=== PATIENT | male | born 1945 | race Caucasian/White ===

== ENCOUNTER 2017-09-14 11:10 | Day surgery (SDC) | payer MEDICARE, BC ==
--- NOTE | 2017-09-14 07:47 | History and Physical Report ---
DATE: 09/13/2017. CHIEF COMPLAINT AND HISTORY OF CHIEF COMPLAINT: This is a patient with a history of an implanted spinal cord stimulator placed on 10/01/2014. He is here for removal. Over the last number of months to a year, this system has not been functional. He was given the option to remove or replace, and he opted to removed. His medical history is chronic; he does have a history of lumbar spine abnormalities including rotoscoliosis with a probable laminotomy at 4-5 and 5-1. PAST MEDICAL HISTORY: Noncontributory. PAST SURGICAL HISTORY: Lumbar spinal surgery, knee surgery, appendectomy, stimulator placement. MEDICATIONS ON ADMISSION: To be provided. ALLERGIES: Vicodin and Lamisil. SOCIAL HISTORY: Caffeine. FAMILY HISTORY: Noncontributory. REVIEW OF SYSTEMS: The patient seems appropriate and in no acute distress. The remainder of the systems review shows glasses. PHYSICAL EXAMINATION: General: Height and weight unavailable. Vital Signs: Unavailable. HEENT: Within normal limits. Lungs: Clear. Heart: Regular rate and rhythm. Abdomen: Nontender. Musculoskeletal: Examination of the musculoskeletal system shows the incisional sites for the leads for stimulators at approximately T12 and L1. The generator site at the right posterior gluteal margin is identified. All incisions are intact. Sensory dunbar are intact. Underlying pain pattern is radicular postlaminectomy, somewhat more right than left. Motor and sensory field functionality is intact. Neurologic: Cranial nerves are intact. IMPRESSION: 1. POSTLUMBAR LAMINECTOMY SYNDROME, ICD-10 CODE M96.1. 2. LUMBAR RADICULITIS, ICD-10 CODE M54.16 AND M54.17. 3. NONFUNCTIONAL SPINAL CORD STIMULATOR, TWO LEADS, INTERNAL GENERATOR. PLAN: The patient is here for removal of the spinal cord stimulator, two leads , and generator on an outpatient basis. The potential risks, side effects, and complications have all been reviewed and discussed. JOB NUMBER: [id number] cc: Scott Kaba M.D. CLAUDY
[~2017-09-14 11:10] MED LIST: ACETAMINOPHEN 1,000 MG/100 ML BTL IV ONE; CEFAZOLIN 2 Gram 2 GM/50 ML BAG IVPB ONE; FAMOTIDINE 20MG TABLET PO ONE; MECLIZINE 25 MG TABLET PO ONE; METOCLOPRAMIDE 10 MG TABLET PO ONE
[2017-09-14] MEDS ORDERED: FENTANYL PF 100MCG/2ML VIAL IV ONE (11:11)
[2017-09-14] MEDS ORDERED: PROPOFOL 10 MG/ML VIAL IV ONE (11:11)
[2017-09-14] MEDS ORDERED: BUPIVACAINE 0.75% W/EPI MPF 30ML VIAL IVP ONE (11:11)
[2017-09-14] MEDS ORDERED: *PACU ONLY* KETAMINE HCL 10 MG/ML (20ML) VIAL IV ONE (11:11)
[2017-09-14] MEDS ORDERED: LIDOCAINE 1% W/EPI 1:200,000 MPF 30ML SQ ONE (11:11)
[2017-09-14] MEDS ORDERED: CEFAZOLIN 1G VIAL IM ONE (11:11)
[2017-09-14] MEDS ORDERED: MIDAZOLAM HCL 2MG/2ML VIAL IV ONE (11:11)
[2017-09-14] MEDS ORDERED: LIDOCAINE 2% MDV (20MG/ML) 20ML VIAL IV ONE (11:11)
--- NOTE | 2017-09-15 13:18 | Operative Note - [place] ---
DATE OF SURGERY: 09/14/2017. PREOPERATIVE DIAGNOSIS: 1. LUMBAR RADICULITIS, ICD-10 CODE M54.16 AND M54.17. 2. SPINAL CORD STIMULATOR INTERNAL GENERATOR NONFUNCTIONAL. POSTOPERATIVE DIAGNOSIS: 1. LUMBAR RADICULITIS, ICD-10 CODE M54.16 AND M54.17. 2. SPINAL CORD STIMULATOR INTERNAL GENERATOR NONFUNCTIONAL. OPERATION: 1. Incision, subcutaneous dissection, and removal of two indwelling spinal cord stimulators. 2. Incision, subcutaneous dissection, and removal of indwelling internal pulse generator. SURGEON: Esvin Morin D.O. ANESTHESIA: Local sedation. ANESTHESIA PROVIDER: Ashwin Barron CRNA. INDICATION: This patient presents with a history of a postlaminectomy radiculitis which had been managed with spinal cord stimulation. The implant date was 10/01/2014. Although it was initially quite successful, there appears to have been some migration of the leads which removed stimulation patterns from the right side of the low back and hip and shifted stimulation toward the ribs. He was given the options to revise or remove, and he opted to remove. DESCRIPTION OF PROCEDURE: Intravenous line, vital sign monitoring, and intravenous sedation. Prepped and draped with sterile technique with the patient positioned prone. Under imaging, the incision for the leads and the generator were both infiltrated. An incision was made and subcutaneous dissection was conducted to the leads, anchors, and the suture. The leads, anchor, and suture were all removed intact. All electrodes were accounted for. The posterior gluteal margin generator site was incised. The generator was moved and the connection was removed to the leads. Antibiotic irrigation and Bovie for hemostasis. The incisions were then closed with Vicryl for the fascia and running subcuticular Vicryl for the skin. He was transported to the recovery room stable, showing no side effects from the procedure or the sedation. A Dermabond closure was used to approximate the edges of the wounds. The leads, generator, and all connections were removed intact. DISCHARGE INSTRUCTIONS: 1. The sites are to remain clean and dry; although the Dermabond will allow showering after 24 hours. 2. He will take an antibiotic, Levaquin 500 mg, for 14 days. 3. He will return to the office in five to seven days. The office will contact the patient for the appointment, and we will check his incisions. Until then, he is to keep his activity levels low. 4. All other instructions were provided. Numbers to contact with problems were given. He was then discharged. JOB NUMBER: [id number] cc: Kathy Daly
== END 2017-09-14 14:40 | disposition home or self-care (01) ==
LOC: SUR 11:10
PROVIDERS: ATTEND Pain Medicine Interventional Pain Medicine
DX: T85.193A Other mechanical complication of implanted electronic neurostimulator, generator, initial encounter (principal); M54.16 Radiculopathy, lumbar region; M54.17 Radiculopathy, lumbosacral region; I10 Essential (primary) hypertension
CPT/HCPCS: 63661; 63688; 00300; J3010; J0690; J3490